=== PATIENT | male | born 1965 | race Caucasian/White ===

== ENCOUNTER → 2017-05-07 | Outpatient (CLI) | payer BC ==
--- NOTE | 2017-05-07 20:39 | REP ---
CT ABDOMEN AND PELVIS WITHOUT IV CONTRAST: 05/07/2017: Clinical history: Abdominal pain, unspecified. The patient states there is an upper abdominal bulge. No comparison study. Findings: Noncontrast scanning through the abdomen pelvis with coronal and sagittal reconstructions were provided. CT abdomen: Lung bases are clear. No cardiomegaly, pericardial thickening or effusion and no hiatal hernia. I see no hepatosplenomegaly, focal hepatic or splenic lesion nor intrahepatic biliary dilatation. No ascites. There are surgical clips in the upper abdomen anterior to the stomach and liver near the midline. Gallbladder partially contracted without calcified stone or mass. Adrenal glands normal. Pancreas intact and unremarkable. The kidneys show no stone, mass or cyst. Small bowel loops and colon in the abdomen proper were unremarkable. A tiny amount of omental fat into the umbilicus. In the right upper quadrant there is diastases of the rectus muscles through which there is omental fat herniating this creates asymmetric thickening of the anterior abdominal wall subcutaneous fat layer on the right compared to the left. No bowel herniation here. The bone windows show degenerative changes throughout the lumbar and lower thoracic spine without spondylolysis or spondylolisthesis. Visualized ribs intact. CT pelvis: SI joints, sacrum, pelvis, acetabular bones are intact. 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 There is not yet flattening of the femoral heads. No visible fracture. In the deep pelvis. The distal left colon, sigmoid and rectum were unremarkable. No bowel herniation in the inguinal canals but omental fat distends the left inguinal canal. No midline ventral hernia in the pelvis portion of the abdominal wall. Prostate seminal vesicles and bladder intact. Kidneys without stones. The ureters are without dilatation or stone and no bladder stone. I see no inflammatory changes about the cecum. Appendix is normal. Impression: 1. There is omental fat herniating through a couple of defects in the ventral abdominal wall to the right of midline in the upper abdomen. No bowel herniation is seen. I do not see any fat infarction. There is a trace amount of fat in the umbilicus from a tiny hernia of omental fat as well. No other significant or acute finding. Signed by Devan Hillman MD 05/08/2017 11:14 A
== END ==
LOC: M RAD 16:41
PROVIDERS: ATTEND Surgery
DX: R10.9 Unspecified abdominal pain (principal); Q79.59 Other congenital malformations of abdominal wall